=== PATIENT | female | born 1980 | race Caucasian/White ===

== ENCOUNTER 2017-09-05 14:22 | Emergency (ER) | payer OTHER ==
[~2017-09-05] VITALS: Ht 170.2 cm; Wt 67.5 kg
[2017-09-05 14:42] VITALS: Ht 170.2 cm; Wt 67.5 kg
[2017-09-05] MEDS ORDERED: ONDANSETRON 4 MG INJ IV STA (16:06)
[2017-09-05] MEDS ORDERED: morphine 4 MG/ML VIAL IV STA (16:06)
[2017-09-05 16:27] LABS: BASOPHILS % 0.2 % (0.0-2.0); EOSINOPHILS # 0.3 10^3/ul (0.0-0.5); HEMATOCRIT 35.3 % (37.0-47.0); LYMPHOCYTES # 2.1 10^3/ul (0.8-2.9); LYMPHOCYTES % 22.9 % (15.0-51.0); MEAN CORPUSCULAR HEMOGLOBIN 35.4 pg (29.0-33.0); MEAN CORPUSCULAR VOLUME 104.1 fl (82.0-101.0); MEAN PLATELET VOLUME 10.3 fl (7.4-10.4); MONOCYTE # 0.4 10^3/ul (0.3-0.9); MONOCYTES % 4.8 % (0.0-11.0); NEUTROPHIL # 6.3 10^3/ul (1.6-7.5); NEUTROPHILS % 68.9 % (39.0-77.0); PLATELET COUNT 295 10^3/UL (140-415); RED BLOOD COUNT 3.39 10^6/ul (4.20-5.40); RED CELL DISTRIBUTION WIDTH 12.3 % (11.5-14.5); WHITE BLOOD COUNT 9.2 10^3/ul (4.8-10.8)
[2017-09-05 16:49] LABS: ALBUMIN 4.5 g/dl (3.3-4.9); ALBUMIN/GLOBULIN RATIO 1.73; BILIRUBIN,INDIRECT 0.1 mg/dl (0-1.1); BILIRUBIN,TOTAL 0.1 mg/dl (0.2-1.3); CALCIUM 8.7 mg/dl (8.4-10.2); CREATININE 0.61 mg/dl (0.44-1.00); POTASSIUM 4.4 mmol/L (3.5-5.1); TOTAL PROTEIN 7.1 g/dl (6.1-8.1)
[2017-09-05] MEDS ORDERED: HYDROmorphONE 1 MG/ML SYG IV STA (17:31)
--- NOTE | 2017-09-05 18:45 | RADRPT ---
PROCEDURE: OB Ultrasound. CLINICAL INDICATION: Positive test. Pelvic pain. TECHNIQUE: Ultrasound of the pelvis was performed with transabdominal sonography in the axial and sagittal planes. COMPARISON: No prior study is available for comparison. FINDINGS: There is a single intrauterine gestational sac. pole and yolk sac are present. There is heart motion. heart rate is 143 beats per minute. [place]-rump length is 0.95 cm. Mean sac diameter is 1.85 cm. Menstrual age by ultrasound dates is 6 weeks 6 days. This indicates an expected date of delivery of 04/25/2018. The right ovary appears normal measuring 3.4 x 1.5 x 2.2 cm. The left ovary appears normal measuring 3.7 x 1.9 x 1.5 cm. Color Doppler and pulsed Doppler sonography demonstrate normal flow to the ovaries. There is no other pelvic mass or free fluid. IMPRESSION: 1. Single live intrauterine gestation of 6 weeks 6 days menstrual age by ultrasound dates. 2. Expected date of delivery is 04/25/2018. RPTAT: QQ .Grabiel Bentley MD, Date Time Electronically viewed and signed by .Grabiel Bentley MD, on 09/05/2017 18:45 .R/
[2017-09-05] MEDS ORDERED: HYDR-902 PO (18:48)
[2017-09-05] MEDS ORDERED: ONDA4TAB14 PO (18:48)
[2017-09-05 19:06] LABS: URINE BLOOD (Dip) POC 1+ (NEGATIVE)
--- NOTE | 2017-09-05 19:19 | ERD ---
ER Documentation Chief Complaint Chief Complaint ap x1wk, w/nausea vomitting HPI Patient is a 36-year-old female with no medical problems who presents with abdominal pain. The abdominal pain started on Wednesday. The pain was worse today. She has had vomiting. The abdominal pain is diffuse. Comes and goes. She has had no treatment as of yet. The patient said her last mental period was 2-3 months ago but does not think she is . She does not currently have a primary doctor. ROS All systems reviewed and are negative except as per history of present illness. Medications Home Meds Active Scripts Ondansetron (Ondansetron Odt) 4 Mg Tab.rapdis, 4 MG PO Q6H Y for NAUSEA AND/OR VOMITING, #30 TAB Prov:TOÑO RUIZ MD 09/05/17 Hydrocodone/Acetaminophen (Cromwell 10-325 Tablet) 1 Each Tablet, 1 TAB PO Q6H Y for PAIN, #7 TAB Prov:TOÑO RUIZ MD 09/05/17 Allergies Allergies: Coded Allergies: No Known Allergy (Unverified , 09/05/17) PMhx/Soc Medical and Surgical Hx: pt denies Medical Hx FmHx Family History: No diabetes Physical Exam Vitals Vital Signs Date Time Temp Pulse Resp B/P Pulse Ox O2 Delivery O2 Flow Rate FiO2 09/05/17 17:46 71 18 161/96 98 Room Air 09/05/17 14:42 98.0 95 20 154/101 98 Physical Exam Const: Moderate distress secondary to pain Head: Atraumatic Eyes: Normal Conjunctiva ENT: Normal External Ears, Nose and Mouth. Neck: Full range of motion..~ No meningismus. Resp: Clear to auscultation bilaterally Cardio: Regular rate and rhythm, no murmurs Abd: Soft, diffuse tenderness to palpation without rebound or guarding, minimally distended lower abdomen Skin: No petechiae or rashes Back: No midline or flank tenderness Ext: No cyanosis, or edema Neur: Awake and alert Psych: Normal Mood and Affect Result Diagram: 09/05/17 1600 09/05/17 1600 Results 24 hrs Laboratory Tests Test 09/05/17 16:00 09/05/17 19:04 White Blood Count 9.210^3/ul Red Blood Count 3.3910^6/ul Hemoglobin 12.0g/dl Hematocrit 35.3% Mean Corpuscular Volume 104.1fl Mean Corpuscular Hemoglobin 35.4pg Mean Corpuscular Hemoglobin Concent 34.0g/dl Red Cell Distribution Width 12.3% Platelet Count 21315^3/UL Mean Platelet Volume 10.3fl Neutrophils % 68.9% Lymphocytes % 22.9% Monocytes % 4.8% Eosinophils % 3.0% Basophils % 0.2% Nucleated Red Blood Cells % 0.0/100WBC Neutrophils # 6.310^3/ul Lymphocytes # 2.110^3/ul Monocytes # 0.410^3/ul Eosinophils # 0.310^3/ul Basophils # 0.010^3/ul Nucleated Red Blood Cells # 0.010^3/ul Sodium Level 145mmol/L Potassium Level 4.4mmol/L Chloride Level 107mmol/L Carbon Dioxide Level 24mmol/L Anion Gap 18 Blood Urea Nitrogen 8mg/dl Creatinine 0.61mg/dl Glucose Level 78mg/dl Calcium Level 8.7mg/dl Total Bilirubin 0.1mg/dl Direct Bilirubin 0.00mg/dl Indirect Bilirubin 0.1mg/dl Aspartate Amino Transf (AST/SGOT) 36IU/L Alanine Aminotransferase (ALT/SGPT) 31IU/L Alkaline Phosphatase 69IU/L Total Protein 7.1g/dl Albumin 4.5g/dl Globulin 2.60g/dl Albumin/Globulin Ratio 1.73 Lipase 251U/L Beta HCG, Quantitative 48703.0mIU/ml Bedside Urine pH (LAB) 6.0 Bedside Urine Protein (LAB) Negative Bedside Urine Glucose (UA) Negative Bedside Urine Ketones (LAB) Negative Bedside Urine Blood 1+ Bedside Urine Nitrite (LAB) Negative Bedside Urine Leukocyte Esterase (L Negative Current Medications Medications (Trade) Dose Ordered Sig/Paty Route PRN Reason Start Time Stop Time Status Last Admin Dose Admin Morphine Sulfate (morphine) 4 mg ONCE STAT IV 09/05/17 16:06 09/05/17 16:08 DC 09/05/17 16:32 Ondansetron HCl (Zofran Inj) 4 mg ONCE STAT IV 09/05/17 16:06 09/05/17 16:08 DC 09/05/17 16:32 Hydromorphone HCl (Dilaudid) 1 mg ONCE STAT IV 09/05/17 17:31 09/05/17 17:32 DC 09/05/17 17:46 Procedures/MDM Ultrasound shows IUP with 6 weeks 6 day per radiology. Patient is a 36-year-old female presents with abdominal pain. She was found to be on a urine test. This new onset and I believe part of her pain may be due to early . At this point her white blood cell count is normal and LFTs and lipase were normal. Urine dip shows no sign of infection. I doubt appendicitis, cholecystitis, pancreatitis, or bowel obstruction. The patient will be discharged with prescription for [place] and Zofran and will need to follow-up with the primary doctor within 24-48 hours for reevaluation and care. She can return sooner for any worsening symptoms. Departure Diagnosis: Primary Impression: Weeks of gestation: less than 8 weeks Qualified Code: Z3A.01 - Less than 8 weeks gestation of Additional Impression: Abdominal pain Abdominal location: generalized Qualified Code: R10.84 - Generalized abdominal pain Condition: Fair Patient Instructions: Abdominal Pain, Early Referrals: [facility] YOU HAVE RECEIVED A MEDICAL SCREENING EXAM AND THE RESULTS INDICATE THAT YOU DO NOT HAVE A CONDITION THAT REQUIRES URGENT TREATMENT IN THE EMERGENCY DEPARTMENT. FURTHER EVALUATION AND TREATMENT OF YOUR CONDITION CAN WAIT UNTIL YOU ARE SEEN IN YOUR DOCTORS OFFICE WITHIN THE NEXT 1-2 DAYS. IT IS YOUR RESPONSIBILITY TO MAKE AN APPOINTMENT FOR FOLOW-UP CARE. IF YOU HAVE A PRIMARY DOCTOR --you should call your primary doctor and schedule an appointment IF YOU DO NOT HAVE A PRIMARY DOCTOR YOU CAN CALL OUR PHYSICIAN REFERRAL HOTLINE AT IF YOU CAN NOT AFFORD TO SEE A PHYSICIAN YOU CAN CHOSE FROM THE FOLLOWING [facility] [address] [facility] [address] [facility]. [facility] [address] [facility] [address] [facility] [address] [facility]. [facility]. [address] Additional Instructions: Call your primary care doctor TOMORROW for an appointment during the next 1-2 days.See the doctor sooner or return here if your condition worsens before your appointment time. TOÑO RUIZ MD Sep 05, 2017 19:19
[2017-09-05 19:20] VITALS: BP 153/90; PULSE 63; RESP 18; TEMP 97.6
== END 2017-09-05 19:20 | disposition home or self-care (01) ==
LOC: E/R 14:22
DX: O26.891 Other specified pregnancy related conditions, first trimester (principal); R10.84 Generalized abdominal pain; R10.2 Pelvic and perineal pain; Z3A.01 Less than 8 weeks gestation of pregnancy
CPT/HCPCS: 36415; 76801; 80053; 81003; 83690; 84702; 85025; 96374; 96375; J1170; J2270; J2405; Z7502

== ENCOUNTER 2019-07-04 06:21 | Inpatient (IN) | payer OTHER ==
[~2019-07-04] VITALS: Ht 162.6 cm; Wt 68.2 kg
[2019-07-04] VITALS (10 sets, daily range): BP systolic 100–137; BP diastolic 68–81; PULSE 72–90; RESP 18–20; Ht 162.6 cm; Wt 68.2 kg
[~2019-07-04 06:21] MED LIST: CARAS PO; HYDR-3980 PO; METH10TA2 PO; ONDA4TAB14 PO; PANT40TA3 PO; THIA100T56 PO
[2019-07-04] MEDS ORDERED: ACETAMINOPHEN 325 MG TAB PO PRN (10:30)
[2019-07-04] MEDS ORDERED: NACL 0.9% 3 ML SYG IV SCH (10:30)
[2019-07-04] MEDS ORDERED: HYDROmorphONE 0.5 MG/0.5 ML SYG IV PRN (10:30)
[2019-07-04] MEDS: SOD CHLORIDE 0.9% 1,000 ML IV SCH ×3 (11:24→21:52)
[2019-07-04] MEDS ORDERED: LORAZEPAM 2 MG INJ IV ONE (11:30)
[2019-07-04] MEDS: morphine 2 MG INJ IV PRN ×3 (12:46→22:36)
[2019-07-04] MEDS ORDERED: MULTIVITAMINS 10 ML, THIAMINE 100 MG, FOLIC ACID 1 MG in SOD CHLORIDE 0.9% 1,000 ML IVPB SCH (14:00)
[2019-07-04] MEDS ORDERED: CHLORDIAZEPOXIDE 25 MG CAP PO ONE (15:13)
[2019-07-04] MEDS: LORAZEPAM 2 MG INJ IV PRN ×2 (15:42→21:07)
[2019-07-04] MEDS: PANTOPRAZOLE 40 MG INJ IV SCH (18:10)
[2019-07-04] MEDS ORDERED: PROPOFOL 20 ML ONE (19:31)
[2019-07-04] MEDS: CHLORDIAZEPOXIDE 25 MG CAP PO SCH (21:00)
[2019-07-04] MEDS ORDERED: FAMOTIDINE 20 MG INJ IV SCH (21:00)
[2019-07-05] MEDS: SOD CHLORIDE 0.9% 1,000 ML IV SCH ×5 (02:52→23:58)
[2019-07-05] MEDS: PANTOPRAZOLE 40 MG INJ IV SCH ×2 (05:04→17:34)
[2019-07-05] MEDS: morphine 2 MG INJ IV PRN ×2 (05:04→09:10)
[2019-07-05] MEDS: LORAZEPAM 2 MG INJ IV PRN ×5 (06:09→22:32)
[2019-07-05 07:22] VITALS: BP 133/90; PULSE 98; RESP 20
[2019-07-05] MEDS: CHLORDIAZEPOXIDE 25 MG CAP PO SCH ×3 (09:10→20:04)
[2019-07-05] MEDS: SUCRALFATE (100 MG/ML) 10ML CUP PO SCH ×3 (12:48→20:04)
[2019-07-05] MEDS: METHADONE 10 MG TAB PO SCH (14:19)
[2019-07-05 14:44] VITALS: BP 125/91; PULSE 75; RESP 18
[2019-07-05 18:37] VITALS: BP 118/92; PULSE 75; RESP 18
[2019-07-06 02:55] VITALS: BP 124/74; PULSE 81; RESP 17
[2019-07-06] MEDS: LORAZEPAM 2 MG INJ IV PRN ×5 (03:25→20:34)
[2019-07-06] MEDS: SOD CHLORIDE 0.9% 1,000 ML IV SCH ×4 (03:27→20:35)
[2019-07-06] MEDS: ONDANSETRON 4 MG INJ IV PRN ×2 (03:32→20:06)
[2019-07-06] MEDS: PANTOPRAZOLE 40 MG INJ IV SCH ×2 (05:05→18:07)
[2019-07-06 07:31] VITALS: BP 121/70; PULSE 77; RESP 18
[2019-07-06] MEDS: THIAMINE 100 MG TAB PO SCH (08:43)
[2019-07-06] MEDS: CHLORDIAZEPOXIDE 25 MG CAP PO SCH ×3 (08:43→20:34)
[2019-07-06] MEDS: SUCRALFATE (100 MG/ML) 10ML CUP PO SCH ×4 (08:43→20:34)
[2019-07-06] MEDS: METHADONE 10 MG TAB PO SCH (10:17)
[2019-07-06 14:01] VITALS: BP 128/83; PULSE 82; RESP 18
[2019-07-06 20:02] VITALS: BP 120/79; PULSE 87; RESP 18
[2019-07-06 20:25] VITALS: BP 127/74; PULSE 96; RESP 18
[2019-07-07] MEDS: LORAZEPAM 2 MG INJ IV PRN ×3 (00:34→09:01)
[2019-07-07 01:58] VITALS: BP 103/62; PULSE 61; RESP 18
[2019-07-07] MEDS: ONDANSETRON 4 MG INJ IV PRN (02:44)
[2019-07-07] MEDS: SOD CHLORIDE 0.9% 1,000 ML IV SCH (02:51)
[2019-07-07] MEDS: PANTOPRAZOLE 40 MG INJ IV SCH (05:01)
[2019-07-07 07:37] VITALS: BP 120/85; PULSE 86; RESP 16
[2019-07-07] MEDS: THIAMINE 100 MG TAB PO SCH (08:29)
[2019-07-07] MEDS: SUCRALFATE (100 MG/ML) 10ML CUP PO SCH ×2 (08:29→12:35)
[2019-07-07] MEDS: CHLORDIAZEPOXIDE 25 MG CAP PO SCH ×2 (08:29→12:35)
[2019-07-07] MEDS: METHADONE 10 MG TAB PO SCH (08:30)
[2019-07-07] MEDS ORDERED: LORAZEPAM 2 MG INJ IV ONE (12:30)
[2019-07-07 15:00] VITALS: BP 106/74; PULSE 74; RESP 18
== END 2019-07-07 16:00 | disposition home or self-care (01) | DRG 440 ==
LOC: MS1 09:16 → MS3 07-05 18:13
PROVIDERS: ADMIT Internal Medicine; ATTEND Internal Medicine
PROC: 0DB68ZX Excision of Stomach, Via Natural or Artificial Opening Endoscopic, Diagnostic (ICD-10-PCS; 2019-07-04)
PROC: 0DB58ZX Excision of Esophagus, Via Natural or Artificial Opening Endoscopic, Diagnostic (ICD-10-PCS; principal; 2019-07-04 19:00)
DX: K85.20 Alcohol induced acute pancreatitis without necrosis or infection (principal); K76.0 Fatty (change of) liver, not elsewhere classified; G89.4 Chronic pain syndrome; F41.9 Anxiety disorder, unspecified; F10.10 Alcohol abuse, uncomplicated; K29.00 Acute gastritis without bleeding; K20.9 Esophagitis, unspecified; F43.10 Post-traumatic stress disorder, unspecified; K70.9 Alcoholic liver disease, unspecified
CPT/HCPCS: 80053; 80307; 82150; 82787; 83690; 83735; 84100; 84478; 85025; 86038; 86140; 88305; 88312; C9113; J2060; J2270; J2405; J3411; J7030